=== PATIENT | male | born 1960 | race Caucasian/White ===

== ENCOUNTER 2017-05-01 16:51 | Emergency (ER) | payer OTHER, BC, SELFPAY ==
[2017-05-01 16:55] VITALS: BP 134/73; PULSE 89; RESP 20; TEMP 37.1; O2SAT 96; BMI 17.8
--- NOTE | 2017-05-01 17:08 | CT_ITS ---
CT head/brain wo con HISTORY: Altered mental status, altered level of consciousness, confusion, suspected lung cancer with left hilar mass ITS.REASON: confusion ORDERING PHYSICIAN: Kailyn Lindsey MD PATIENT AGE: 56 years COMPARISON: None TECHNIQUE: Axial images obtained without contrast. Brain and bone windows reviewed. FINDINGS: No midline shift, mass effect, intracranial hemorrhage, hydrocephalus, or extra-axial fluid collection is evident. Low density changes are present in the periventricular region bilaterally most prominent in the right parietal lobe and may be due to ischemic gliotic change from microvascular disease. No space-occupying lesion midline shift or acute intracranial hemorrhage. There is a lucency in the medial aspect of the right frontal bone nonspecific The calvarium has an unremarkable appearance. No mastoid effusion. No sinus air-fluid levels.. IMPRESSION: 1. No acute finding. 2. Periventricular ischemic gliotic changes.
--- NOTE | 2017-05-01 17:08 | XR_ITS ---
XR chest AP HISTORY: Altered mental status, altered level consciousness, ITS.REASON: ams ORDERING PHYSICIAN: Kailyn Lindsey MD PATIENT AGE: 56 years COMPARISON: 01/12/2017 FINDINGS: There is Mediport catheter present on the right with the tip in region of the superior vena cava. Chest tube is present along the medial aspect of left hemithorax. Left hilar mass noted somewhat obscured by the underlying effusion. There is a small left pleural effusion. Parenchymal opacity is present in the left midlung and in part may be due to the mass that is been previously demonstrated. Left pleural effusion present with elevated left hemidiaphragm. IMPRESSION:. As above, new right Mediport catheter. Persistent left hilar mass with new left-sided effusion and left lower lobe volume loss with left chest tube in place
[2017-05-01 17:26] LABS: ABG HCO3 21.7 mmhg (22.0-26.0); ABG Oxygen Saturation 98 % (90-100); ABG PCO2 30.6 mmhg (35.0-45.0); ABG PH 7.47 mmol/L (7.35-7.45); ABG PO2 106.5 mmhg (80-100); ABG TCO2 22.7 mmhg (23-27)
[2017-05-01 17:27] LABS: Allen's Test ACCEPTABLE; Oxygen 2 L %; Source L. RADIAL
--- NOTE | 2017-05-01 17:28 | [facility].EDWEAK ---
ED Disposition Clinical Impression: Hyponatremia, Delirium due to general medical condition, Pleural effusion Disposition: Xfer Short-Term Hosp Condition on Discharge: Fair Instructions: DI for Altered Mental Status Referrals: Patrick Juárez MD [Primary Care Provider] - Forms: Transfer Record - ED - Critical Care Critical Care Time: Yes Attestation: On 05/01/17, the high probability of a clinically significant, sudden or life threatening deterioration of the following system(s) required my full and direct attention, intervention and personal management. The time I documented below is in addition to time spent performing reported procedures but includes the following listed in this critical care notation. Total Critical Care Time: 35 Vital system(s) involved:: Respiratory Failure My critical care processes included: Assessment & monitoring of V/S, Initial and Re-exams, Data Review/Interpretation, Coordinating Care, Medication Orders and management, Documentation Comment: multiple consults Medical Decision Making Vital Signs: 05/01/17 16:55 05/01/17 18:03 Temperature 98.7 F Temperature Source Oral Pulse Rate [Right Radial] 89 100 H Respiratory Rate 20 20 Blood Pressure [Right Arm] 134/73 132/73 Blood Pressure Mean [Right Arm] 93 92 Blood Pressure Source [Right Arm] Automatic Cuff Blood Pressure Position [Right Arm] Sitting 02 Sat by Pulse Oximetry 96 99 Oxygen Delivery Method Nasal Cannula Room Air Oxygen Flow Rate (LPM) 2 - Lab Data Lab results reviewed: Yes: I reviewed the patient's lab results. Lab Results 05/01/17 17:20: WBC 9.1, RBC 4.76, Hgb 12.7 L, Hct 39.8 L, MCV 83.7, MCH 26.6 L, MCHC 31.8, RDW 17.7 H, Plt Count 351, MPV 10.0, Neut % (Auto) 69.2, Lymph % (Auto) 13.2, [place] % (Auto) 16.1 H, Eos % (Auto) 1.3, Baso % (Auto) 0.2, Neut # (Auto) 6.3, Lymph # (Auto) 1.2, [place] # (Auto) 1.5 H, Eos # (Auto) 0.1, Baso # (Auto) 0.0 05/01/17 17:20: Sodium 121 L, Potassium 5.3 H, Chloride 87 L, Carbon Dioxide 29, Anion Gap 10.3, BUN 22 H, Creatinine 1.07, Estimated Creat Clear 63, Estimated GFR 71, Est GFR ( Amer) 87, Glucose 104, Calcium 11.4 H, Total Bilirubin 0.8, AST 235 H, ALT 261 H, Alkaline Phosphatase 144 H, Total Creatine Kinase 74, CK-MB (CK-2) 2.8, CK-MB (CK-2) Rel Index 3.8, Troponin I < 0.02, Total Protein 6.6, Albumin 2.2 L, Globulin 4.4 H, Albumin/Globulin Ratio 0.5 L 05/01/17 17:20: Lactic Acid 3.1 H 05/01/17 17:20: B-Natriuretic Peptide 274 H 05/01/17 17:20: Specimen Source L. radial, O2 % 2 l, ABG pH 7.47 H, ABG pCO2 30.6 L, ABG pO2 106.5 H, ABG HCO3 21.7 L, ABG Total CO2 22.7 L, ABG O2 Saturation 98, ABG Base Excess -2.0, Mynor Test Acceptable 05/01/17 17:20: PT 13.9 H, INR 1.28 H, APTT 35.2 H 05/01/17 17:30: Influenza Type A Ag Negative, Influenza Type B Ag Negative Result diagrams: 05/01/17 17:20 05/01/17 17:20 Orders (Tests/Meds): ED MEDICATIONS Generic Name Dose Route Start Last Admin Trade Name Freq PRN Reason Stop Dose Admin Sodium Chloride 1,000 mls @ 75 mls/hr 05/01/17 18:30 05/01/17 18:30 Sod Chlor 0.9% 1000ml Bag IV 05/31/17 18:29 75 mls/hr .[id number] BRIJESH Administration Discontinued Medications Generic Name Dose Route Start Last Admin Trade Name Freq PRN Reason Stop Dose Admin Piperacillin Sod/Tazobactam 100 mls @ 200 mls/hr 05/01/17 18:49 05/01/17 18:55 Sod 3.375 gm/ Sodium Chloride IV 05/01/17 18:50 200 mls/hr Q8H ONE Administration Protocol Oxycodone/Acetaminophen 2 each 05/01/17 19:44 05/01/17 20:22 Percocet 7.5/325mg Tablet PO 05/01/17 19:45 2 each ONCE ONE Administration ORDERS Category Date Time Status CT head/brain wo con Stat Cat Scan 05/01/17 17:08 Taken Urinalysis and Microscopic Stat Lab 05/01/17 17:08 Ordered Blood Culture Stat Micro 05/01/17 17:08 Received ABG [Arterial Blood Gas] Stat RT 05/01/17 17:11 Ordered - Radiology Data #1 Image(s): Chest Image Reviewed: Yes I reviewe
--- NOTE | 2017-05-01 17:38 | ED_ITS ---
ED Disposition Clinical Impression: Hyponatremia, Delirium due to general medical condition, Pleural effusion Disposition: Xfer Short-Term Hosp Condition on Discharge: Fair Instructions: DI for Altered Mental Status Referrals: Patrick Juárez MD [Primary Care Provider] - Forms: Transfer Record - ED - Critical Care Critical Care Time: Yes Attestation: On 05/01/17, the high probability of a clinically significant, sudden or life threatening deterioration of the following system(s) required my full and direct attention, intervention and personal management. The time I documented below is in addition to time spent performing reported procedures but includes the following listed in this critical care notation. Total Critical Care Time: 35 Vital system(s) involved:: Respiratory Failure My critical care processes included: Assessment & monitoring of V/S, Initial and Re-exams, Data Review/Interpretation, Coordinating Care, Medication Orders and management, Documentation Comment: multiple consults Medical Decision Making Vital Signs: 05/01/17 16:55 05/01/17 18:03 Temperature 98.7 F Temperature Source Oral Pulse Rate [Right Radial] 89 100 H Respiratory Rate 20 20 Blood Pressure [Right Arm] 134/73 132/73 Blood Pressure Mean [Right Arm] 93 92 Blood Pressure Source [Right Arm] Automatic Cuff Blood Pressure Position [Right Arm] Sitting 02 Sat by Pulse Oximetry 96 99 Oxygen Delivery Method Nasal Cannula Room Air Oxygen Flow Rate (LPM) 2 - Lab Data Lab results reviewed: Yes: I reviewed the patient's lab results. Lab Results 05/01/17 17:20: WBC 9.1, RBC 4.76, Hgb 12.7 L, Hct 39.8 L, MCV 83.7, MCH 26.6 L , MCHC 31.8, RDW 17.7 H, Plt Count 351, MPV 10.0, Neut % (Auto) 69.2, Lymph % ( Auto) 13.2, [place] % (Auto) 16.1 H, Eos % (Auto) 1.3, Baso % (Auto) 0.2, Neut # ( Auto) 6.3, Lymph # (Auto) 1.2, [place] # (Auto) 1.5 H, Eos # (Auto) 0.1, Baso # ( Auto) 0.0 05/01/17 17:20: Sodium 121 L, Potassium 5.3 H, Chloride 87 L, Carbon Dioxide 29 , Anion Gap 10.3, BUN 22 H, Creatinine 1.07, Estimated Creat Clear 63, Estimated GFR 71, Est GFR ( Amer) 87, Glucose 104, Calcium 11.4 H, Total Bilirubin 0.8, AST 235 H, ALT 261 H, Alkaline Phosphatase 144 H, Total Creatine Kinase 74, CK-MB (CK-2) 2.8, CK-MB (CK-2) Rel Index 3.8, Troponin I < 0.02, Total Protein 6.6, Albumin 2.2 L, Globulin 4.4 H, Albumin/Globulin Ratio 0.5 L 05/01/17 17:20: Lactic Acid 3.1 H 05/01/17 17:20: B-Natriuretic Peptide 274 H 05/01/17 17:20: Specimen Source L. radial, O2 % 2 l, ABG pH 7.47 H, ABG pCO2 30.6 L, ABG pO2 106.5 H, ABG HCO3 21.7 L, ABG Total CO2 22.7 L, ABG O2 Saturation 98, ABG Base Excess -2.0, Mynor Test Acceptable 05/01/17 17:20: PT 13.9 H, INR 1.28 H, APTT 35.2 H 05/01/17 17:30: Influenza Type A Ag Negative, Influenza Type B Ag Negative Result diagrams: 05/01/17 17:20 05/01/17 17:20 Orders (Tests/Meds): ED MEDICATIONS Generic Name Dose Route Start Last Admin Trade Name Freq PRN Reason Stop Dose Admin Sodium Chloride 1,000 mls @ 75 mls/hr 05/01/17 18:30 05/01/17 18:30 Sod Chlor 0.9% 1000ml Bag IV 05/31/17 18:29 75 mls/hr .[id number] BRIJESH Administration Discontinued Medications Generic Name Dose Route Start Last Admin Trade Name Freq PRN Reason Stop Dose Admin Piperacillin Sod/Tazobactam 100 mls @ 200 mls/hr 05/01/17 18:49 05/01/17 18: 55 Sod 3.375 gm/ Sodium Chloride IV 05/01/17 18:5
[2017-05-01 17:40] LABS: INR 1.28 (0.9-1.1); Prothrombin Time 13.9 seconds (9.4-11.8)
[2017-05-01 17:43] LABS: Activated Partial Thrombo Time 35.2 seconds (23.6-34.0)
--- NOTE | 2017-05-01 17:49 | PC.NURSE ---
critical lab result of PTT notified JARED GARCIA
[2017-05-01 17:58] LABS: Alanine Aminotransferase 261 U/L (12-78); Albumin Level 2.2 gm/dL (3.4-5.0); Albumin/Globulin Ratio 0.5 (1.1-1.8); Alkaline Phosphatase 144 U/L (46-116); Anion Gap 10.3 mEq/L (5-15); Aspartate Amino Transferase 235 U/L (15-37); Bilirubin,Total 0.8 mg/dL (0.2-1.0); Blood Urea Nitrogen 22 mg/dL (7-18); CKMB Relative Index 3.8 U/L (0-4.0); Calcium 11.4 mg/dL (8.5-10.1); Carbon Dioxide 29 mmol/L (21.0-32.0); Chloride 87 mmol/L (98-107); Creatine Kinase 74 U/L (39-308); Creatine Kinase MB 2.8 mg/ml (0.0-3.6); Creatinine Clearance Estimated 63 mL/min (0-300); Creatinine,Serum 1.07 mg/dL (0.70-1.30); Estimated Glomerular Filt Rate 71 ml/min (>60); GFR (African American) 87 ML/MIN (>60); Globulin 4.4 gm/dl (1.3-3.2); Glucose 104 mg/dL (74-106); Potassium 5.3 mmoL/L (3.5-5.1); Sodium 121 mmol/L (136-145); Total Protein,Serum 6.6 gm/dL (6.4-8.2); Troponin I < 0.02 ng/ml (0.00-0.06)
[2017-05-01 18:03] VITALS: BP 132/73; PULSE 100; RESP 20; O2SAT 99
[2017-05-01 18:04] LABS: Lactic Acid 3.1 mmol/L (0.4-2.0)
[2017-05-01 18:46] LABS: Basophils % 0.2 % (0.1-2.0); Eosinophils # 0.1 K/mm3 (0.0-0.4); Eosinophils % 1.3 % (0.1-12.0); Hematocrit 39.8 % (42.0-52.0); Hemoglobin 12.7 g/dL (14.1-18.0); Lymphocytes # 1.2 K/mm3 (0.7-4.5); Lymphocytes % 13.2 K/mm3 (10-50); Mean Corpuscular HGB Conc 31.8 g/dL (31.8-35.4); Mean Corpuscular Hemoglobin 26.6 pg (27.0-31.2); Mean Corpuscular Volume 83.7 fl (80-94); Monocytes # 1.5 K/mm3 (0.1-1.0); Monocytes % 16.1 % (1.7-9.3); Neutrophils # 6.3 K/mm3 (1.8-7.8); Neutrophils % 69.2 % (37.0-80.0); Platelet Count 351 K/mm3 (142-424); Red Blood Count 4.76 M/mm3 (4.60-6.20); Red Cell Distribution Width 17.7 % (11.5-17.5); White Blood Count 9.1 K/mm3 (4.8-10.8)
--- NOTE | 2017-05-01 19:04 | PC.NURSE ---
PT HAS BEEN ACCEPTED BY DOCTOR SCHAFFER FROM [facility]. AWAITING [facility] TO CALL BACK WITH A BED ASSIGNMENT.
--- NOTE | 2017-05-01 20:47 | PC.NURSE ---
Report called to floor nurse, face sheet faxed, and [facility] called for transport.
[2017-05-01 22:04] LABS: Reflex Lactic Add Lactic Reflex
[2017-05-01 22:26] VITALS: BP 120/75; PULSE 105; RESP 18; TEMP 37; O2SAT 100
== END 2017-05-01 22:26 | disposition short-term general hospital (02) ==
PROVIDERS: Emergency Provider Emergency Medicine; Family Provider Physician Assistant; PCP Family Medicine
DX: E87.1 Hypo-osmolality and hyponatremia (principal); R53.1 Weakness; J90 Pleural effusion, not elsewhere classified; C34.90 Malignant neoplasm of unspecified part of unspecified bronchus or lung; R60.0 Localized edema; Z96.651 Presence of right artificial knee joint; Z87.891 Personal history of nicotine dependence
CPT/HCPCS: 70450; 71045; 80053; 82550; 82553; 82803; 83605; 83880; 84484; 85025; 85610; 85730; 87040; 87275; 87276; 93005; 93041; 96365; 96366; 96375; 99284; J2543